=== PATIENT | female | born 1995 | race Caucasian/White ===

== ENCOUNTER 2018-06-17 16:29 | Emergency (ER) | payer MEDICAID ==
[~2018-06-17] VITALS: Ht 152.4 cm; Wt 80.7 kg
[2018-06-17 16:36] VITALS: Ht 152.4 cm; Wt 80.7 kg
[2018-06-17 19:47] VITALS: BP 123/94
== END 2018-06-17 19:47 | disposition home or self-care (01) ==
LOC: ED 16:29
DX: J98.01 Acute bronchospasm (principal); J44.9 Chronic obstructive pulmonary disease, unspecified; E66.9 Obesity, unspecified
CPT/HCPCS: J2930; J7613; J7644